=== PATIENT | male | born 1955 | race Caucasian/White ===

== ENCOUNTER 2023-06-11 14:05 | Outpatient (OUT) | payer BC, SELFPAY ==
--- NOTE | 2023-06-11 | VEIN_ITS ---
Patient: LASHELL STEINBERG Exam Date: 06/11/2023 : 1955 Gender:M Ordering : DR. ERIK POLO M.D. Admission #: [id number] Family : Order #: [id number] CLICK HERE TO VIEW EXAM RADIOLOGY REPORT PROCEDURE: VC EXT VENOUS REFLUX HANNA LMTD COMPARISON: None. INDICATIONS: Bilateral leg pain M79.604,M79.605 TECHNIQUE: Duplex imaging of the lower extremity to assess the deep and superficial venous system for the presence of deep or superficial venous incompetence and to document the location and severity of disease. The study includes evaluation of the great saphenous vein (GSV), anterior accessory saphenous vein (AASV) and small saphenous vein (SSV). Patient scanned in reverse Trendelenburg and standing. FINDINGS: RIGHT LOWER EXTREMITY: Saphenofemoral Junction Reflux: Yes 10.3mm 2.1 sec GSV: Diam (mm) Reflux/ Time (sec) Proximal Thigh 5.9 Yes 1.3 Mid Thigh 5.0 Yes 0.8 Distal Thigh 5.2 Yes 0.6 Prox Calf 3.1 No Mid Calf 2.3 Saphenopopliteal Junction Reflux: 2.4mm No SSV: Proximal Calf 2.6 No Mid Calf 2.0 No AASV: Not present Proximal Thigh Mid Thigh Distal Thigh Thrombi: No acute or chronic thrombus visualized Compressibility: Normal Flow: Normal Preforator: Mid/med calf 3.1mm with 1.0s reflux. Prox/med calf 3.0mm with 0s reflux. Tech Note: Incompetent SFJ and GSV. Patent varicose vein prox/med calf 2.7mm with 0s reflux. 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 Tech Note: Incompetent GSV. Patent varicose vein mid/med thigh 4.7mm with 0s reflux. CONCLUSION: 1. 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 Dictated by: Santana Gross MD on 06/11/2023 at 15:41 Approved by: Santana Gross MD on 06/11/2023 at 15:43
== END 2023-06-11 14:06 | disposition home or self-care (01) ==
LOC: VC 14:05
DX: M79.604 Pain in right leg (principal); M79.605 Pain in left leg; I83.93 Asymptomatic varicose veins of bilateral lower extremities; I73.9 Peripheral vascular disease, unspecified; R09.89 Other specified symptoms and signs involving the circulatory and respiratory systems; Z72.0 Tobacco use
CPT/HCPCS: 93970

== ENCOUNTER 2023-06-11 14:51 | Outpatient (OUT) | payer BC, SELFPAY ==
--- NOTE | 2023-06-11 14:56 | US_ITS ---
[place] [id number] Patient Name: LASHELL STEINBERG MRN: [id number] date: 1955 Sex: M Assigned Patient Location: Current Patient Location: Accession/Order Number: [id number] Exam Date: 06/11/2023 15:00 Report Date: 06/11/2023 18:06 At the request of: ERIK POLO Procedure: US carotid duplex BI EXAMINATION: US carotid duplex BI HISTORY: Bilateral Carotid Bruit COMPARISON: No relevant comparison available. TECHNIQUE: Duplex Doppler ultrasound analysis of carotid and vertebral arteries. . Bilateral carotid arterial duplex examination was performed using B-mode, color flow and spectral analysis. Carotid stenosis is reported according to validated velocity parameters, similar to NASCET criteria. FINDINGS: RIGHT CAROTID ARTERY No atherosclerotic plaque Subclavian: PSV: 76.8 cm/s cm/s EDV: 0.0 cm/s cm/s CCA: Prox: PSV: 53.3 cm/s cm/s EDV: 14.2 cm/s cm/s Mid: PSV: 49.4 cm/s cm/s EDV: 15.5 cm/s cm/s Distal: PSV: 42.9 cm/s cm/s EDV: 16.8 cm/s cm/s BULB: PSV: 37.6 cm/s cm/s EDV: 12.0 cm/s cm/s ICA: Prox: PSV: 43.3 cm/s cm/s EDV: 18.4 cm/s cm/s Mid: PSV: 85.5 cm/s cm/s EDV: 37.0 cm/s cm/s Distal: PSV: 103.2 cm/s cm/s EDV: 48.3 cm/s cm/s ECA: PSV: 38.3 cm/s cm/s EDV: 6.0 cm/s cm/s VERTEBRAL: PSV: 93.5 cm/s cm/s EDV: 19.2 cm/s cm/s, antegrade ICA/CCA ratio: PSV: 1.9 EDV: 3.4 LEFT CAROTID ARTERY no atherosclerotic plaque Subclavian: PSV: 93.5 cm/s cm/s EDV: 0.0 cm/s CCA: Prox: PSV: 59.6 cm/s cm/s EDV: 22.4 cm/s Mid: PSV: 55.9 cm/s cm/s EDV: 19.7 cm/s Distal: PSV: 46.9 cm/s cm/s EDV: 19.1 cm/s BULB: PSV: 32.0 cm/s cm/s EDV: 11.3 cm/s ICA: Prox: PSV: 59.2 cm/s cm/s EDV: 26.3 cm/s Mid: PSV: 82.3 cm/s cm/s EDV: 36.2 cm/s Distal: PSV: 96.5 cm/s cm/s EDV: 43.5 cm/s ECA: PSV: 40.3 cm/s cm/s EDV: 8.3 cm/s VERTEBRAL: PSV: 47.9 cm/s cm/s EDV: 17.1 cm/s , antegrade ICA/CCA ratio: PSV: 1.6 EDV: 1.9 US/US carotid duplex BI IMPRESSION: 0-49% flow stenosis bilateral internal carotid arteries Spectral Doppler US Thresholds (Reference: Berny EG, et al. Radiology 2000; 214:247-252) Stenosis (%) PSV (cm/sec) VICA/VCCA 0-49 <150 <2.5 50-69 150-225 2.5-4.0 >70 >225 >4.0 Electronically authenticated by: SHAUNA KEMP Date: 06/11/2023 18:06
--- NOTE | 2023-06-11 14:56 | US_ITS ---
[address] [address] Patient Name: LASHELL STEINBERG MRN: [id number] date: 1955 Sex: M Assigned Patient Location: US Current Patient Location: Accession/Order Number: [id number] Exam Date: 06/11/2023 15:00 Report Date: 06/11/2023 18:08 At the request of: ERIK POLO Procedure: US aorta EXAM: US aorta HISTORY: Bilateral Leg Pain, Tobacco Abuse Z72.0 COMPARISON: None. TECHNIQUE: Grayscale, color and Doppler FINDINGS: Incidentally identified is an arrhythmia during a portion of the exam Proximal aorta: 3.0 x 3.2 cm Mid aorta: 2.4 x 2.6 cm Distal aorta: 2.0 x 2.1 cm Right common iliac artery: 1.2 x 1.5 cm Left common iliac artery: 1.2 x 1.4 cm Mild atherosclerosis with normal color and Doppler flow US/US aorta IMPRESSION: Mild dilation of proximal aorta up to 3.0 x 3.2 cm Electronically authenticated by: SHAUNA KEMP Date: 06/11/2023 18:08
== END 2023-06-11 14:52 | disposition home or self-care (01) ==
LOC: US 14:51
DX: M79.604 Pain in right leg (principal); M79.605 Pain in left leg; I83.93 Asymptomatic varicose veins of bilateral lower extremities; I73.9 Peripheral vascular disease, unspecified; R09.89 Other specified symptoms and signs involving the circulatory and respiratory systems; Z72.0 Tobacco use
CPT/HCPCS: 76706; 93880; 93970